=== PATIENT | male | born 2005 | race Hispanic/Latino ===

== ENCOUNTER 2025-07-05 02:41 | Emergency (ER) | payer OTHER, SELFPAY | END 2025-07-05 05:15 | disposition home or self-care (01) | LOC: ERS 02:41 | DX: F10.129 Alcohol abuse with intoxication, unspecified (principal); S60.512A Abrasion of left hand, initial encounter; Y90.9 Presence of alcohol in blood, level not specified; W19.XXXA Unspecified fall, initial encounter | CPT/HCPCS: 99284 ==